=== PATIENT | male | born 1985 | race Caucasian/White ===

== ENCOUNTER 2021-01-16 17:58 | Emergency (ER) | payer OTHER ==
[2021-01-16 18:15] VITALS: BP 143/77
--- NOTE | 2021-01-16 18:53 | ED Physician Documentation ---
History of Present Illness - Stated complaint Stated Complaint: RT FINGER LAC - Chief complaint Chief Complaint: Laceration - History obtained from History obtained from: Patient - History of Present Illness Timing: Today Pain level max: 3 Pain level now: 3 - Additonal information Additional information: R 5th digit laceration while cutting potatoes. Patient states that he accidentally cut off a small flap of his skin. He reapproximated it to the area. Patient is right-handed. Tetanus up-to-date. Nothing makes it better or worse Review of Systems Constitutional: denies: Fever, Chills Skin: denies: Rash Musculoskeletal: denies: Neck pain, Back pain PD PAST MEDICAL HISTORY - Past Medical History Past Medical History: No - Past Surgical History Past Surgical History: No - Allergies Allergies/Adverse Reactions: Allergies Allergy/AdvReac Type Severity Reaction Status Date / Time No Known Drug Allergies Allergy Verified 01/16/21 18:12 - Social History Does the pt smoke?: No Smoking Status: Current every day smoker Does the pt drink ETOH?: No Does the pt have substance abuse?: No - Immunizations Immunizations are current?: Yes - POLST Patient has POLST: No PD ED PE NORMAL - Vitals Vital signs reviewed: Yes - General General: Alert and oriented X 3, No acute distress - Derm Derm: Warm and dry - Extremities Extremities: Other (0.5 cm round avulsed piece of skin to the medial aspect of the right fifth digit, proximal phalanx. No active bleeding. Neurovascularly intact. No tendon injury) - Neuro Neuro: Alert and oriented X 3 - Psych Psych: Normal mood, Normal affect Results - Vitals Vitals: Vital Signs - 24 hr 01/16/21 18:12 Temperature 36.6 C Heart Rate 76 Respiratory 16 Rate Blood Pressure 143/77 H O2 Saturation 100 Oxygen O2 Source Room air Procedures - Laceration (location) Right fifth digit Length in cm: 0.5 Wound type: Superficial, Clean, Other (Circular avulsion) Neurovascular status: Sensory intact, Motor intact, Vascular intact Tendon involvement: Tendon intact Wound preparation: Irrigated copiously NS Skin layer closure: Dermabond Other: Patient tolerated well, No complications, Neurovascular intact, Dressing applied, Tetanus UTD PD MEDICAL DECISION MAKING - ED course Complexity details: considered differential, d/w patient ED course: Dermabond was used to readhere the flap as a biological dressing to the wound. A finger splint was applied as well to help protect the area. Patient counseled that the flap may fall off and . If this happens the wound will heal by secondary intention. Warnings of infection and instructions on wound care given at bedside. Also counseled on how to minimize scarring. Patient counseled regarding signs and symptoms for which I believe and urgent re-evaluation would be necessary. Patient with good understanding of and agreement to plan and is comfortable going home at this time This document was made in part using voice recognition software. While efforts are made to proofread this document, sound alike and grammatical errors may occur. Departure - Departure Disposition: Home, Self Care Clinical Impression: Finger laceration Qualifiers: Encounter type: initial encounter Finger: little finger Damage to nail status: without damage Foreign body presence: without foreign body Laterality: right Qualified Code(s): S61.216A - Laceration without foreign body of right little finger without damage to nail, initial encounter Condition: Good Instructions: ED Laceration Hand Follow-Up: your,doctor in 1 week for wound check [Other] Comments: Leave the splint in place for the next 2 to 3 days. The glue will fall off on its own. We have left the avulsed skin as a biological dressing. This may readhere or this may turn black and fall off. If it falls off that is okay, the wound will be scarring from underneath. Do not apply ointment while the glue is in place. Return if you notice redness, swelling or drainage from the wound. Discharge Date/Time: 01/16/21 19:08
== END 2021-01-16 19:08 | disposition home or self-care (01) ==
LOC: ED 17:58
DX: S61.216A Laceration without foreign body of right little finger without damage to nail, initial encounter (principal); W26.0XXA Contact with knife, initial encounter; Y93.G1 Activity, food preparation and clean up; Z72.0 Tobacco use
CPT/HCPCS: 12001; 99282